=== PATIENT | female | born 1985 | race Caucasian/White ===

== ENCOUNTER 2019-03-27 08:16 | Emergency (ER) | payer OTHER ==
[~2019-03-27] VITALS: Ht 165.1 cm; Wt 127.0 kg
[2019-03-27 08:16] VITALS: BP 146/81
--- NOTE | 2019-03-27 08:33 | PHYS DOC ---
Adult General Chief Complaint Chief Complaint: HAND PROBLEM HPI HPI Patient is a 33-year-old female who presents with injury to her left hand that she sustained while she was at work. Patient works at the [employer] and indicates that one of the correction doors had closed on her left hand. Patient is left-hand dominant. She rates pain as moderate, and pain is worsened with movement of fingers. She denies any other injuries.[] Review of Systems Review of Systems Constitutional: Denies fever or chills [] Respiratory: Denies cough or shortness of breath [] Cardiovascular: No additional information not addressed in HPI [] Musculoskeletal: Positive left hand and finger pain [] Integument: Denies rash or skin lesions [] Physical Exam Physical Exam Constitutional: Well developed, well nourished, no acute distress, non-toxic appearance. [] Cardiovascular:Heart rate regular rhythm, no murmur [] Lungs & Thorax: Bilateral breath sounds clear to auscultation [] Extremities: Examination of left hand and fingers demonstrates soft tissue swelling, primarily around the third and fourth digits with some ecchymosis. [] EKG EKG [] Radiology/Procedures Radiology/Procedures [] Impressions: X-ray of left hand demonstrates no acute bony abnormalities Course & Med Decision Making Course & Med Decision Making Pertinent Labs and Imaging studies reviewed. (See chart for details) [] Dragon Disclaimer Dragon Disclaimer This electronic medical record was generated, in whole or in part, using a voice recognition dictation system. Departure Departure: Impression: Primary Impression: Contusion of left hand including fingers Disposition: 01 HOME, SELF-CARE Condition: STABLE Referrals: DIANA BERNSTEIN PAC (PCP) Patient Instructions: Hand Contusion Scripts Diclofenac Sodium (DICLOFENAC SODIUM) 50 Mg Tablet.dr 1 TAB PO BID PRN for PAIN, #20 TAB Prov: EDUARDO BELLO Jr. DO 03/27/19 Problem Qualifiers Primary Impression: Contusion of left hand including fingers Encounter type: initial encounter Qualified Codes: S60.222A - Contusion of left hand, initial encounter; S60.00XA - Contusion of unspecified finger without damage to nail, initial encounter EDUARDO BELLO Jr. DO Mar 27, 2019 08:33
--- NOTE | 2019-03-27 08:54 | RAD ---
Examination: HAND LEFT 3V History: Crush injury, bruising to fourth digit Comparison/Correlation: None Findings: Total 3 images of the left hand were obtained. Joint spaces are normal. No acute fracture or bony destruction. Soft tissues unremarkable. Impression: No acute process. Electronically signed by: Mohan Esquivel MD (03/27/2019 8:51 AM) [id number]
[2019-03-27] MEDS ORDERED: DICL50TA4 PO (09:05)
== END 2019-03-27 09:18 | disposition home or self-care (01) ==
LOC: ER 08:16
DX: S60.032A Contusion of left middle finger without damage to nail, initial encounter (principal); S60.042A Contusion of left ring finger without damage to nail, initial encounter; W23.0XXA Caught, crushed, jammed, or pinched between moving objects, initial encounter; Y93.89 Activity, other specified; Y92.148 Other place in prison as the place of occurrence of the external cause; Y99.8 Other external cause status
CPT/HCPCS: 73130; 99284